=== PATIENT | female | born 1960 | race Two or more races ===

== ENCOUNTER 2021-06-01 08:00 | Inpatient (IN) | payer OTHER ==
[~2021-06-01] VITALS: Ht 167.6 cm; Wt 108.0 kg
[2021-06-01] MEDS ORDERED: SYNTHROID150 MCG PO (08:11)
[2021-06-01] MEDS ORDERED: METFOR PO (08:11)
[2021-06-01] MEDS ORDERED: COZAAR100 MG PO (08:12)
[2021-06-01] MEDS ORDERED: SIMVASTA PO (08:12)
[2021-06-01] MEDS ORDERED: MELATONIN3 M3 PO (08:14)
[2021-06-01] MEDS ORDERED: VITAMIN D31 ML PO (08:14)
[2021-06-01] MEDS ORDERED: TOPROL XL100 M1 PO (08:15)
[2021-06-01] MEDS ORDERED: HYDROCHLOROTH12.5 MG PO (11:21)
[2021-06-06] MEDS ORDERED: SIMVASTATIN40 MG (13:08)
[2021-06-06] MEDS ORDERED: MIRALAX510 GM (13:08)
[2021-06-06] MEDS ORDERED: METFORMIN HCL750 MG (13:09)
[2021-06-06] MEDS ORDERED: NORTRIPTYLINE H50 MG (13:12)
[2021-06-06] MEDS ORDERED: TRAZODONE HCL50 MG (13:12)
[2021-06-06] MEDS ORDERED: REFRESH TEARS15 ML (13:12)
[2021-06-06] MEDS ORDERED: VITAMIN D3125 MC1 (13:13)
[2021-06-06] MEDS ORDERED: METOPROLOL SUCC25 MG (13:13)
[2021-06-06] MEDS ORDERED: DOLOGESIC 500-1 EACH (13:13)
[2021-06-08] MEDS ORDERED: DUI500 PO (16:33)
[2021-06-08] MEDS ORDERED: PERCOCET 5-3251 EACH PO (16:33)
[2021-06-08] MEDS ORDERED: ELIQUIS2.5 MG PO (16:33)
== END 2021-06-08 17:55 | DRG 470 ==
LOC: O/R 06-06 06:13 → SURH 06-06 08:00
PROVIDERS: ADMIT Orthopaedic Surgery; ATTEND Orthopaedic Surgery
PROC: 0SRD0J9 Replacement of Left Knee Joint with Synthetic Substitute, Cemented, Open Approach (ICD-10-PCS; principal; 2021-06-06 15:30)
DX: M17.12 Unilateral primary osteoarthritis, left knee (principal); I10 Essential (primary) hypertension

== ENCOUNTER 2021-07-03 02:24 | Emergency (ER) | payer OTHER ==
[~2021-07-03] VITALS: Ht 167.6 cm; Wt 105.7 kg
[~2021-07-03 02:24] MED LIST: COZAAR100 MG PO; DOLOGESIC 500-1 EACH; DUI500 PO; ELIQUIS2.5 MG PO; HYDROCHLOROTH12.5 MG PO; MELATONIN3 M3 PO; METFOR PO; METFORMIN HCL750 MG; METOPROLOL SUCC25 MG; MIRALAX510 GM; NORTRIPTYLINE H50 MG; PERCOCET 5-3251 EACH PO; REFRESH TEARS15 ML; SIMVASTA PO; SIMVASTATIN40 MG; SYNTHROID150 MCG PO; TOPROL XL100 M1 PO; TRAZODONE HCL50 MG; VITAMIN D31 ML PO; VITAMIN D3125 MC1
== END 2021-07-03 11:55 | disposition home or self-care (01) ==
LOC: ER 02:24
DX: M79.605 Pain in left leg (principal); Z20.822 Contact with and (suspected) exposure to COVID-19